=== PATIENT | female | born 1995 | race Caucasian/White ===

== ENCOUNTER 2016-05-22 11:37 | Emergency (ER) | payer MEDICAID ==
[2016-05-22 11:37] VITALS: BMI 27.8
[2016-05-22 11:40] VITALS: TEMP 98.3
--- NOTE | 2016-05-22 12:38 | DIRPT ---
CLINICAL DATA: Left first toe pain. Injury to foot yesterday, soft tissue redness. EXAM: LEFT TOE - 2+ VIEW COMPARISON: None. FINDINGS: Four views of the left great toe are provided. Osseous alignment is normal. No fracture line or displaced fracture fragment seen. Bone mineralization is normal. Adjacent soft tissues are unremarkable. IMPRESSION: Negative. Electronically Signed By: Abdoulaye Tavarez M.D. On: 05/22/2016 12:35
[2016-05-22 12:49] VITALS: BP 104/60; PULSE 78
--- NOTE | 2016-05-22 13:04 | EDPRACDOC ---
- General Information Stated Complaint: LEFT 1ST TOE Time Seen by Provider: 05/22/16 12:10 Home Medications: Home Medications Amoxicillin Trihydrate [Amoxicillin] 500 mg PO TID #21 tab 01/05/16 Ketorolac Tromethamine 10 mg PO Q8H PRN #15 tab 01/05/16 Sulfamethoxazole/Trimethoprim [Bactrim Ds Tablet] 1 tab PO BID #14 tab 05/22/16 Allergies/Adverse Reactions: Allergies Allergy/AdvReac Type Severity Reaction Status Date / Time clindamycin Allergy Rash-Genera Verified 01/05/16 13:33 lized - History of Present Illness Onset: LAST NIGHT HPI: PT PRESENTS TODAY WITH LEFT GREAT TOE PAIN AFTER KICKING HER BED POST LAST NIGHT. STATES SHE WOKE THIS MORNING AND IT WAS SWOLLEN AND RED. MOTHER STATES THERE IS A "RED STREAK" TO FOOT. DENIES FEVER. Toe Problem Location: Reports: Left, Great Mechanism: Reports: Blunt Trauma Circumstances: Reports: Tripped Tetanus Up To Date?: Yes Pain Severity: Reports: Moderate Associated Signs & Symptoms: Reports: Other (ERYTHEMA) ED Past Medical History - History Reviewed Yes Nurses notes reviewed and agree except as marked - Patient Medical History Psychological History: Denies: Depression - Social Medical History Smoking Status: Never smoker EDM Review of Systems - Review of Systems ROS Negative Except as Marked: Yes All systems reviewed and were negative except as marked Constitutional: No Symptoms Reported Neurological: No Symptoms Reported Musculoskeletal: Foot Integumentary: Other (REDNESS) - Physical Exam Constitutional: Alert (Awake), No apparent distress Oriented to: Time, Person, Place Last recorded Vital Signs: Last Vital Signs Temp 98.3 F 05/22/16 11:39 Pulse 78 05/22/16 12:49 Resp 18 05/22/16 12:49 BP 104/60 05/22/16 12:49 Pulse Ox 97 05/22/16 12:49 Oxygen Pulse Oxygen Saturation 97 O2 Device Room Air Oxygen Flow Rate Fraction of Inspired Oxygen ( FIO2) - HEENT Head: Normal Eye Exam: Normal Neck: Normal, Denies Pain, Midline - Respiratory/Cardiovascular Respiratory: Normal - CTA Cardiovascular: Normal - GI Palpation: Normal Tenderness: Non tender - Musculoskeletal Back: Normal Extremities: Other (MILD RED, SWOLLEN LEFT GREAT TOE WITH VERY MINIMAL STREAKING TO TOP OF FOOT) - Integumentary Skin: Normal Lymphatics: Normal - Neurologic Mood Description: Normal Thought: Coherent ED Toe Problem Phys Exam - Musculoskeletal Digit: Swelling, Moderate Tenderness, Other (ERYTHEMA) Nail: Normal Nailbed: Normal Soft Tissue: Tender, Red, Swelling Foot: Normal Distal Function/Circulation: Normal - Integumentary Skin: Red Lymphatics: Normal Decision Time to Discharge: 13:02 - Departure Disposition: Home Condition: Good Final Diagnosis: Cellulitis, toe Qualifiers: Laterality: left Qualified Code(s): L03.032 - Cellulitis of left toe Instructions: MRSA (Methicillin-Resistant Staphylococcus Aureus) (ED) Education/Counseling Given To: Patient Education/Counseling Given Regarding: Diagnosis, Treatment, Follow Up Referrals: Nasra Anaya MD [Primary Care Provider] - One Week Prescriptions: New Sulfamethoxazole/Trimethoprim [Bactrim Ds Tablet] 1 tab PO BID #14 tab No Action Amoxicillin Trihydrate [Amoxicillin] 500 mg PO TID #21 tab Ketorolac Tromethamine 10 mg PO Q8H PRN #15 tab PRN Reason: Pain
== END 2016-05-22 13:09 | disposition home or self-care (01) ==
LOC: EDMC 11:37
DX: L03.032 Cellulitis of left toe (principal)
CPT/HCPCS: 99282